=== PATIENT | male | born 1950 | race African-American/Black ===

== ENCOUNTER 2021-03-03 00:41 | Inpatient (IN) ==
[2021-03-03] MEDS ORDERED: GLUCAGON 1 MG VIAL IM PRN (02:40)
[2021-03-03] MEDS ORDERED: ONDANSETRON 4 MG/2 ML VIAL IV PRN (02:40)
[2021-03-03] MEDS ORDERED: DEXTROSE 50% 25 GM/50 ML VIAL IV PRN (02:40)
[2021-03-03] MEDS: SODIUM CHLORIDE 0.9% 1,000 ML IV SCH ×2 (02:45→23:02)
[2021-03-03 03:44] LABS: Basophils % 0.4 % (0.0-0.8); Eosinophils % 0.3 % (0.00-10.9); Hematocrit 41.3 VOL% (42.0-52.0); Hemoglobin 12.5 GM/DL (14.0-18.0); Immature Granulocytes % 0.4 %; Immature Granulocytes Absolute 0.04 #; Lymphocytes # 0.7 10*3/uL (1.4-4.0); Lymphocytes % 6.5 % (21.2-54.2); Mean Corpuscular HGB Conc 30.3 GM/DL (32-36); Mean Corpuscular Volume 75.8 FL (87-102); Mean Platelet Volume 10.6 FL (9.6-12.0); Monocytes % 11.1 % (1.7-12.7); Neutrophils % 81.3 % (38.7-73.9); Platelet Count 337 T/CUMM (130-400); Red Blood Count 5.45 MC/CUMM (3.8-5.5); Red Cell Distribution Width 19.9 % (9.3-17.3); White Blood Count 10.2 T/CUMM (4-12)
[2021-03-03 04:03] LABS: Albumin 3.6 G/DL (3.4-5.0); Bilirubin,Total 0.6 MG/DL (0.2-1.0); Calcium 8.1 MG/DL (8.5-10.1); Osmolality,Calculated 289.8 MOS/KG (273-304); Potassium 4.1 MMOL/L (3.5-5.1)
[2021-03-03] MEDS ORDERED: PROMETHAZINE 25 MG/1 ML VIAL IM PRN (05:39)
[2021-03-03] MEDS ORDERED: PANTOPRAZOLE 40 MG VIAL IV SCH (09:00)
[2021-03-03 12:48] LABS: Hematocrit 39.9 VOL% (42.0-52.0); Hemoglobin 12.7 GM/DL (14.0-18.0)
[2021-03-03] MEDS: PANTOPRAZOLE 40 MG VIAL IV SCH ×2 (14:22→21:02)
[2021-03-03 17:40] LABS: Hematocrit 40.8 VOL% (42.0-52.0); Hemoglobin 12.6 GM/DL (14.0-18.0)
[2021-03-03] MEDS ORDERED: OLANZapine 10 MG VIAL IM PRN (17:51)
[2021-03-04 01:07] LABS: Hematocrit 39.5 VOL% (42.0-52.0); Hemoglobin 12.1 GM/DL (14.0-18.0)
[2021-03-04] MEDS: SODIUM CHLORIDE 0.9% 1,000 ML IV SCH ×2 (01:37→09:01)
[2021-03-04 06:04] LABS: Albumin 3.3 G/DL (3.4-5.0); Bilirubin,Total 0.8 MG/DL (0.2-1.0); Calcium 7.8 MG/DL (8.5-10.1); Osmolality,Calculated 296.8 MOS/KG (273-304); Potassium 4.7 MMOL/L (3.5-5.1); Total Protein 7.9 G/DL (6.4-8.2)
[2021-03-04] MEDS: PANTOPRAZOLE 40 MG VIAL IV SCH ×2 (09:00→21:29)
[2021-03-04 09:45] LABS: Basophils % 0.2 % (0.0-0.8); Eosinophils % 0.1 % (0.00-10.9); Hematocrit 38.5 VOL% (42.0-52.0); Hemoglobin 11.5 GM/DL (14.0-18.0); Immature Granulocytes Absolute 0.12 #; Lymphocytes # 1.4 10*3/uL (1.4-4.0); Lymphocytes % 11.3 % (21.2-54.2); Mean Corpuscular HGB Conc 29.9 GM/DL (32-36); Mean Corpuscular Volume 76.5 FL (87-102); Monocytes % 14.1 % (1.7-12.7); Neutrophils % 73.3 % (38.7-73.9); Red Blood Count 5.03 MC/CUMM (3.8-5.5); Red Cell Distribution Width 19.9 % (9.3-17.3); White Blood Count 12.6 T/CUMM (4-12)
[2021-03-04 09:49] LABS: Platelet Count 148 T/CUMM (130-400)
[2021-03-04 09:56] LABS: Calcium 7.7 MG/DL (8.5-10.1); Osmolality,Calculated 302.7 MOS/KG (273-304); Potassium 4.7 MMOL/L (3.5-5.1)
[2021-03-04 12:41] LABS: ABG HCO3 13.7 MMOL/L (20-26); ABG PH 7.305 (7.35-7.45); ABG PO2 86.9 MM HG (80-95); ABG TCO2 9.9 MMOL/L (23-27)
[2021-03-04] MEDS: SODIUM BICARB INJ 150 MEQ in DEXTROSE 5% 850 ML IV SCH ×2 (14:13→21:30)
[2021-03-04] MEDS ORDERED: LACTATED RINGERS 1,000 ML IV ONE (15:00)
[2021-03-04] MEDS ORDERED: ROCURONIUM 50 MG/5 ML VIAL IV ONE (15:30)
[2021-03-04] MEDS ORDERED: LIDOCAINE 2% 5 ML VIAL ONE (15:30)
[2021-03-04] MEDS ORDERED: propofoL 200 MG/20 ML VIAL IV ONE (15:30)
[2021-03-04] MEDS ORDERED: SUCCINYLCHOLINE 200 MG/10 ML VIAL ONE (15:30)
[2021-03-04] MEDS ORDERED: DESFLURANE 1 UNIT/15 MINUTE INH ONE ×2 (15:30→17:26)
[2021-03-04] MEDS ORDERED: MIDAZOLAM 2 MG/2 ML VIAL ONE (15:31)
[2021-03-04] MEDS ORDERED: fentaNYL 100 MCG/2 ML VIAL ONE (15:31)
[2021-03-04] MEDS ORDERED: PHENYLEPHRINE 1 MG/10 ML SYRINGE IV ONE (17:17)
[2021-03-04] MEDS ORDERED: ONDANSETRON 4 MG/2 ML VIAL ONE (17:17)
[2021-03-04] MEDS ORDERED: DEXAMETHASONE 4 MG/1 ML VIAL ONE (17:17)
[2021-03-04] MEDS ORDERED: GLYCOPYRROLATE 0.4 MG/2 ML VIAL ONE (17:17)
[2021-03-04] MEDS ORDERED: NEOSTIGMINE 10 MG/10 ML VIAL ONE (17:18)
[2021-03-04] MEDS ORDERED: SUGAMMADEX 200 MG/2 ML VIAL IV ONE (17:40)
[2021-03-04] MEDS ORDERED: HYDROmorphone 2 MG/1 ML VIAL ONE (17:55)
[2021-03-04] MEDS ORDERED: HYDROmorphone 2 MG/1 ML VIAL IV PRN (18:16)
[2021-03-04] MEDS ORDERED: ESMOLOL 100 MG/10 ML VIAL IV ONE ×2 (18:29→18:47)
[2021-03-05] MEDS: SODIUM BICARB INJ 150 MEQ in DEXTROSE 5% 850 ML IV SCH ×3 (05:54→20:42)
[2021-03-05 06:27] LABS: Basophils % 0.2 % (0.0-0.8); Hematocrit 36.2 VOL% (42.0-52.0); Hemoglobin 10.9 GM/DL (14.0-18.0); Immature Granulocytes Absolute 0.12 #; Lymphocytes # 0.9 10*3/uL (1.4-4.0); Lymphocytes % 7.3 % (21.2-54.2); Mean Corpuscular HGB Conc 30.1 GM/DL (32-36); Mean Corpuscular Volume 77.8 FL (87-102); Monocytes % 10.8 % (1.7-12.7); NRBC # 0.03 10*3/uL; Neutrophils % 80.7 % (38.7-73.9); Platelet Count 134 T/CUMM (130-400); Red Blood Count 4.65 MC/CUMM (3.8-5.5); Red Cell Distribution Width 20.2 % (9.3-17.3)
[2021-03-05 06:42] LABS: Albumin 3.8 G/DL (3.4-5.0); Bilirubin,Total 0.8 MG/DL (0.2-1.0); Calcium 7.8 MG/DL (8.5-10.1); Osmolality,Calculated 305.7 MOS/KG (273-304); Potassium 4.9 MMOL/L (3.5-5.1)
[2021-03-05 06:53] LABS: Band Neutrophils 11 % (0-10); Hypochromasia 1+; Lymphocytes 9 % (20-55); Segmented Neutrophils 69 % (50-85); Total Cells Counted 100
[2021-03-05 06:54] LABS: Microcytosis 1+; Ovalocytes Slight; Target Cells Slight
[2021-03-05] MEDS: PANTOPRAZOLE 40 MG VIAL IV SCH ×2 (09:04→20:45)
[2021-03-05 17:33] LABS: Barbiturates Screen,Urine Negative (Negative); Benzodiazepines Screen,Urine Positive (Negative); Cannabinoid Screen,Urine Negative (Negative); Opiate Screen,Urine Positive (Negative); Phencyclidine Screen,Urine Negative (Negative)
[2021-03-06] MEDS: SODIUM BICARB INJ 150 MEQ in DEXTROSE 5% 850 ML IV SCH ×2 (05:12→14:49)
[2021-03-06 06:05] LABS: Calcium 7.8 MG/DL (8.5-10.1); Osmolality,Calculated 315.4 MOS/KG (273-304); Potassium 3.6 MMOL/L (3.5-5.1)
[2021-03-06] MEDS: PANTOPRAZOLE 40 MG VIAL IV SCH (11:10)
[2021-03-06] MEDS: cefTRIAXone 2,000 MG in SODIUM CHLORIDE 0.9% 100 ML IV SCH (17:53)
[2021-03-06 20:04] LABS: Basophils % 0.2 % (0.0-0.8); Hematocrit 30.6 VOL% (42.0-52.0); Hemoglobin 9.6 GM/DL (14.0-18.0); Immature Granulocytes % 3.6 %; Immature Granulocytes Absolute 0.54 #; Lymphocytes # 1.7 10*3/uL (1.4-4.0); Lymphocytes % 11.1 % (21.2-54.2); Mean Corpuscular HGB Conc 31.4 GM/DL (32-36); Mean Corpuscular Volume 73.4 FL (87-102); Monocytes % 10.7 % (1.7-12.7); NRBC # 0.42 10*3/uL; Neutrophils % 74.4 % (38.7-73.9); Platelet Count 125 T/CUMM (130-400); Red Blood Count 4.17 MC/CUMM (3.8-5.5); Red Cell Distribution Width 19.4 % (9.3-17.3); White Blood Count 15.2 T/CUMM (4-12)
[2021-03-07] MEDS: PANTOPRAZOLE 40 MG VIAL IV SCH ×3 (00:12→21:17)
[2021-03-07] MEDS: SODIUM BICARB INJ 150 MEQ in DEXTROSE 5% 850 ML IV SCH ×2 (01:22→04:28)
[2021-03-07] MEDS: cefTRIAXone 2,000 MG in SODIUM CHLORIDE 0.9% 100 ML IV SCH ×2 (04:30→16:58)
[2021-03-07 06:09] LABS: Calcium 8.2 MG/DL (8.5-10.1); Osmolality,Calculated 317.3 MOS/KG (273-304); Potassium 3.7 MMOL/L (3.5-5.1)
[2021-03-07 06:28] LABS: Basophils % 0.3 % (0.0-0.8); Eosinophils % 0.1 % (0.00-10.9); Hematocrit 30.6 VOL% (42.0-52.0); Immature Granulocytes % 2.5 %; Immature Granulocytes Absolute 0.37 #; Lymphocytes # 1.6 10*3/uL (1.4-4.0); Mean Corpuscular HGB Conc 32.7 GM/DL (32-36); Mean Corpuscular Volume 75.7 FL (87-102); Monocytes % 15.2 % (1.7-12.7); NRBC # 0.44 10*3/uL; Neutrophils % 70.9 % (38.7-73.9); Platelet Count 114 T/CUMM (130-400); Red Blood Count 4.04 MC/CUMM (3.8-5.5); White Blood Count 14.9 T/CUMM (4-12)
[2021-03-07] MEDS ORDERED: traMADol 50 MG TABLET PO PRN (10:07)
[2021-03-07] MEDS ORDERED: MORPHINE 4 MG/1 ML VIAL IV PRN (10:11)
[2021-03-07] MEDS: MORPHINE 4 MG/1 ML VIAL IV PRN ×2 (11:07→16:36)
[2021-03-07] MEDS: DEXTROSE 5% NACL 0.45% 1,000 ML IV SCH ×2 (12:17→21:17)
[2021-03-08] MEDS: DEXTROSE 5% NACL 0.45% 1,000 ML IV SCH ×4 (04:15→23:30)
[2021-03-08] MEDS: cefTRIAXone 2,000 MG in SODIUM CHLORIDE 0.9% 100 ML IV SCH ×2 (04:20→17:33)
[2021-03-08 04:32] LABS: Calcium 8.2 MG/DL (8.5-10.1); Potassium 3.2 MMOL/L (3.5-5.1)
[2021-03-08] MEDS: PANTOPRAZOLE 40 MG VIAL IV SCH (08:26)
[2021-03-08] MEDS: MORPHINE 4 MG/1 ML VIAL IV PRN ×2 (08:32→21:19)
[2021-03-09] MEDS: cefTRIAXone 2,000 MG in SODIUM CHLORIDE 0.9% 100 ML IV SCH ×2 (05:19→16:54)
[2021-03-09 05:50] LABS: Calcium 7.9 MG/DL (8.5-10.1); Osmolality,Calculated 310.7 MOS/KG (273-304); Potassium 3.4 MMOL/L (3.5-5.1)
[2021-03-09] MEDS: DEXTROSE 5% NACL 0.45% 1,000 ML IV SCH ×2 (07:51→16:54)
[2021-03-10] MEDS: DEXTROSE 5% NACL 0.45% 1,000 ML IV SCH ×2 (01:20→09:36)
[2021-03-10] MEDS: cefTRIAXone 2,000 MG in SODIUM CHLORIDE 0.9% 100 ML IV SCH ×2 (04:58→16:58)
[2021-03-10 05:36] LABS: Calcium 8.2 MG/DL (8.5-10.1); Osmolality,Calculated 305.4 MOS/KG (273-304); Potassium 3.1 MMOL/L (3.5-5.1)
[2021-03-10] MEDS: RIFAXIMIN 550 MG TABLET PO SCH ×2 (09:46→20:57)
[2021-03-10] MEDS: PANTOPRAZOLE 40 MG TABLET PO SCH (09:46)
[2021-03-10] MEDS: THIAMINE 100 MG TABLET PO SCH (09:46)
[2021-03-10] MEDS: BRIMONIDINE/TIMOLOL OPH SOLN 5 ML BOTTLE BOTH EYES SCH ×2 (09:46→21:05)
[2021-03-10] MEDS: MEMANTINE 10 MG TABLET PO SCH ×2 (09:46→20:57)
[2021-03-10] MEDS: DEXTROSE 5% 1,000 ML IV SCH ×2 (11:15→18:37)
[2021-03-10] MEDS: LACTULOSE 20 GM/30 ML UDCUP PO SCH ×2 (16:42→21:05)
[2021-03-10] MEDS: POTASSIUM CHLORIDE 20 MEQ/15 ML UDCUP PER TUBE PRN ×3 (16:58→20:57)
[2021-03-10] MEDS: DONEPEZIL 10 MG TABLET PO SCH (20:56)
[2021-03-10] MEDS: GABAPENTIN 100 MG CAPSULE PO SCH (20:57)
[2021-03-10] MEDS: DIVALPROEX 500 MG TABLET PO SCH (20:57)
[2021-03-11] MEDS: DEXTROSE 5% 1,000 ML IV SCH ×2 (01:45→14:17)
[2021-03-11] MEDS: cefTRIAXone 2,000 MG in SODIUM CHLORIDE 0.9% 100 ML IV SCH (04:35)
[2021-03-11 05:07] LABS: Calcium 8.1 MG/DL (8.5-10.1); Osmolality,Calculated 298.6 MOS/KG (273-304); Potassium 3.4 MMOL/L (3.5-5.1)
[2021-03-11] MEDS: MULTIVITAMIN (CENTRUM) TABLET PO SCH (10:55)
[2021-03-11] MEDS: BRIMONIDINE/TIMOLOL OPH SOLN 5 ML BOTTLE BOTH EYES SCH ×2 (10:55→22:01)
[2021-03-11] MEDS: PANTOPRAZOLE 40 MG TABLET PO SCH (10:56)
[2021-03-11] MEDS: THIAMINE 100 MG TABLET PO SCH (10:56)
[2021-03-11] MEDS: DIVALPROEX ER 250 MG TABLET PO SCH (10:56)
[2021-03-11] MEDS: RIFAXIMIN 550 MG TABLET PO SCH ×2 (10:56→21:59)
[2021-03-11] MEDS: FOLIC ACID 1 MG TABLET PO SCH (10:58)
[2021-03-11] MEDS: MEMANTINE 10 MG TABLET PO SCH ×2 (10:58→22:00)
[2021-03-11] MEDS: LACTULOSE 20 GM/30 ML UDCUP PO SCH ×3 (10:58→22:00)
[2021-03-11] MEDS: CIPROFLOXACIN 0.3% OPH SOLN 2.5 ML BOTTLE BOTH EYES SCH ×2 (17:15→22:01)
[2021-03-11] MEDS: GABAPENTIN 100 MG CAPSULE PO SCH (21:59)
[2021-03-11] MEDS: DONEPEZIL 10 MG TABLET PO SCH (22:00)
[2021-03-11] MEDS: MORPHINE 4 MG/1 ML VIAL IV PRN (22:00)
[2021-03-11] MEDS: DIVALPROEX 500 MG TABLET PO SCH (22:13)
[2021-03-12] MEDS: DEXTROSE 5% 1,000 ML IV SCH (03:50)
[2021-03-12] MEDS: CIPROFLOXACIN 0.3% OPH SOLN 2.5 ML BOTTLE BOTH EYES SCH ×6 (04:29→21:55)
[2021-03-12 05:16] LABS: Basophils % 0.3 % (0.0-0.8); Eosinophils # 0.2 10*3/uL (0.0-0.87); Eosinophils % 1.4 % (0.00-10.9); Hematocrit 33.1 VOL% (42.0-52.0); Hemoglobin 9.8 GM/DL (14.0-18.0); Immature Granulocytes % 0.9 %; Lymphocytes # 1.7 10*3/uL (1.4-4.0); Lymphocytes % 15.2 % (21.2-54.2); Mean Corpuscular HGB Conc 29.6 GM/DL (32-36); Mean Corpuscular Volume 83.2 FL (87-102); Monocytes % 7.4 % (1.7-12.7); NRBC # 0.02 10*3/uL; Neutrophils % 74.8 % (38.7-73.9); Platelet Count 223 T/CUMM (130-400); Red Blood Count 3.98 MC/CUMM (3.8-5.5); Red Cell Distribution Width 21.4 % (9.3-17.3); White Blood Count 10.9 T/CUMM (4-12)
[2021-03-12 05:31] LABS: Calcium 8.4 MG/DL (8.5-10.1); Osmolality,Calculated 295.7 MOS/KG (273-304); Potassium 3.6 MMOL/L (3.5-5.1)
[2021-03-12] MEDS: FOLIC ACID 1 MG TABLET PO SCH (10:10)
[2021-03-12] MEDS: MEMANTINE 10 MG TABLET PO SCH ×2 (10:10→21:51)
[2021-03-12] MEDS: PANTOPRAZOLE 40 MG TABLET PO SCH (10:10)
[2021-03-12] MEDS: THIAMINE 100 MG TABLET PO SCH (10:10)
[2021-03-12] MEDS: MULTIVITAMIN (CENTRUM) TABLET PO SCH (10:10)
[2021-03-12] MEDS: DIVALPROEX ER 250 MG TABLET PO SCH (10:10)
[2021-03-12] MEDS: LACTULOSE 20 GM/30 ML UDCUP PO SCH ×3 (10:10→21:51)
[2021-03-12] MEDS: RIFAXIMIN 550 MG TABLET PO SCH ×2 (10:10→21:51)
[2021-03-12] MEDS: BRIMONIDINE/TIMOLOL OPH SOLN 5 ML BOTTLE BOTH EYES SCH ×2 (10:11→21:55)
[2021-03-12] MEDS: DONEPEZIL 10 MG TABLET PO SCH (21:51)
[2021-03-12] MEDS: GABAPENTIN 100 MG CAPSULE PO SCH (21:51)
[2021-03-12] MEDS: DIVALPROEX 500 MG TABLET PO SCH (21:51)
[2021-03-12] MEDS: levETIRAcetam 500 MG TABLET PO SCH (21:51)
[2021-03-12] MEDS: MORPHINE 4 MG/1 ML VIAL IV PRN (21:58)
[2021-03-13] MEDS: CIPROFLOXACIN 0.3% OPH SOLN 2.5 ML BOTTLE BOTH EYES SCH ×6 (02:37→22:49)
[2021-03-13 04:36] LABS: Basophils % 0.4 % (0.0-0.8); Eosinophils # 0.2 10*3/uL (0.0-0.87); Eosinophils % 1.8 % (0.00-10.9); Hematocrit 32.1 VOL% (42.0-52.0); Immature Granulocytes Absolute 0.11 #; Lymphocytes # 1.9 10*3/uL (1.4-4.0); Lymphocytes % 17.2 % (21.2-54.2); Mean Corpuscular HGB Conc 31.2 GM/DL (32-36); Mean Corpuscular Volume 82.7 FL (87-102); Mean Platelet Volume 12.3 FL (9.6-12.0); Monocytes % 7.1 % (1.7-12.7); Neutrophils % 72.5 % (38.7-73.9); Platelet Count 247 T/CUMM (130-400); Red Blood Count 3.88 MC/CUMM (3.8-5.5); Red Cell Distribution Width 21.9 % (9.3-17.3); White Blood Count 10.9 T/CUMM (4-12)
[2021-03-13 05:13] LABS: Calcium 8.1 MG/DL (8.5-10.1); Osmolality,Calculated 296.6 MOS/KG (273-304); Potassium 4.2 MMOL/L (3.5-5.1)
[2021-03-13] MEDS: LACTULOSE 20 GM/30 ML UDCUP PO SCH ×3 (11:11→22:49)
[2021-03-13] MEDS: PANTOPRAZOLE 40 MG TABLET PO SCH (11:11)
[2021-03-13] MEDS: THIAMINE 100 MG TABLET PO SCH (11:11)
[2021-03-13] MEDS: RIFAXIMIN 550 MG TABLET PO SCH ×2 (11:11→22:48)
[2021-03-13] MEDS: FOLIC ACID 1 MG TABLET PO SCH (11:11)
[2021-03-13] MEDS: DIVALPROEX ER 250 MG TABLET PO SCH (11:11)
[2021-03-13] MEDS: levETIRAcetam 500 MG TABLET PO SCH ×2 (11:11→22:48)
[2021-03-13] MEDS: MULTIVITAMIN (CENTRUM) TABLET PO SCH (11:11)
[2021-03-13] MEDS: BRIMONIDINE/TIMOLOL OPH SOLN 5 ML BOTTLE BOTH EYES SCH ×2 (11:12→22:49)
[2021-03-13] MEDS: MEMANTINE 10 MG TABLET PO SCH ×2 (11:12→22:49)
[2021-03-13] MEDS: DIVALPROEX 500 MG TABLET PO SCH (22:48)
[2021-03-13] MEDS: GABAPENTIN 100 MG CAPSULE PO SCH (22:48)
[2021-03-13] MEDS: DONEPEZIL 10 MG TABLET PO SCH (22:49)
[2021-03-14] MEDS: CIPROFLOXACIN 0.3% OPH SOLN 2.5 ML BOTTLE BOTH EYES SCH ×3 (01:39→10:13)
[2021-03-14 04:50] LABS: Basophils % 0.3 % (0.0-0.8); Eosinophils # 0.1 10*3/uL (0.0-0.87); Hematocrit 29.3 VOL% (42.0-52.0); Hemoglobin 8.8 GM/DL (14.0-18.0); Immature Granulocytes % 0.7 %; Immature Granulocytes Absolute 0.07 #; Lymphocytes # 1.6 10*3/uL (1.4-4.0); Lymphocytes % 16.8 % (21.2-54.2); Mean Platelet Volume 11.4 FL (9.6-12.0); Monocytes % 6.5 % (1.7-12.7); Neutrophils % 74.7 % (38.7-73.9); Platelet Count 251 T/CUMM (130-400); Red Blood Count 3.53 MC/CUMM (3.8-5.5); Red Cell Distribution Width 21.2 % (9.3-17.3); White Blood Count 9.5 T/CUMM (4-12)
[2021-03-14 05:14] LABS: Calcium 8.6 MG/DL (8.5-10.1); Osmolality,Calculated 298.4 MOS/KG (273-304); Potassium 3.6 MMOL/L (3.5-5.1)
[2021-03-14] MEDS: DIVALPROEX ER 250 MG TABLET PO SCH (08:08)
[2021-03-14] MEDS: MULTIVITAMIN (CENTRUM) TABLET PO SCH (08:08)
[2021-03-14] MEDS: THIAMINE 100 MG TABLET PO SCH (08:08)
[2021-03-14] MEDS: FOLIC ACID 1 MG TABLET PO SCH (08:09)
[2021-03-14] MEDS: MEMANTINE 10 MG TABLET PO SCH (08:09)
[2021-03-14] MEDS: levETIRAcetam 500 MG TABLET PO SCH (08:09)
[2021-03-14] MEDS: LACTULOSE 20 GM/30 ML UDCUP PO SCH (08:09)
[2021-03-14] MEDS: RIFAXIMIN 550 MG TABLET PO SCH (08:09)
[2021-03-14] MEDS: PANTOPRAZOLE 40 MG TABLET PO SCH (08:09)
[2021-03-14 08:30] VITALS: BP 113/71
[2021-03-14] MEDS: BRIMONIDINE/TIMOLOL OPH SOLN 5 ML BOTTLE BOTH EYES SCH (10:13)
== END 2021-03-14 14:01 | DRG 356 ==
LOC: N.3E → OBSVTOIN 02:03 → SUATTDRO 02:03 → N.TELEN 03-04 20:08
PROVIDERS: ADMIT Internal Medicine; ATTEND Internal Medicine

== ENCOUNTER 2021-03-21 10:16 | Inpatient (IN) ==
[2021-03-21 12:32] LABS: Albumin 3.4 G/DL (3.4-5.0); Bilirubin,Total 0.6 MG/DL (0.20-1.00); Calcium 9.4 MG/DL (8.5-10.1); Osmolality,Calculated 303.9 MOS/KG (273-304); Potassium 5.7 MMOL/L (3.5-5.1); Total Protein 8.8 G/DL (6.4-8.2)
[2021-03-21] MEDS ORDERED: LACTATED RINGERS 1,000 ML IV ONE (13:20)
[2021-03-21] MEDS ORDERED: LEVOFLOXACIN INJ 500 MG/100 ML PREMIX IV STA (13:28)
[2021-03-21 14:46] LABS: Basophils % 0.1 % (0.0-0.8); Eosinophils % 0.2 % (0.00-10.9); Immature Granulocytes % 0.4 %; Immature Granulocytes Absolute 0.04 #; Lymphocytes # 0.7 10*3/uL (1.4-4.0); Mean Corpuscular HGB Conc 27.7 GM/DL (32-36); Mean Platelet Volume 11.5 FL (9.6-12.0); Monocytes % 2.7 % (1.7-12.7); Neutrophils % 89.6 % (38.7-73.9); Platelet Count 305 T/CUMM (130-400); Red Blood Count 4.59 MC/CUMM (3.8-5.5); Red Cell Distribution Width 23.5 % (9.3-17.3); White Blood Count 9.4 T/CUMM (4-12)
[2021-03-21 14:48] LABS: Hemoglobin 10.8 GM/DL (14.0-18.0)
[2021-03-21 14:52] LABS: INR 1.2; PT Patient Result 13.1 SECS (10.5-12.0)
[2021-03-21 14:58] LABS: Band Neutrophils 6 % (0-10); Eosinophils 1 % (0-10); Lymphocytes 9 % (20-55); Segmented Neutrophils 80 % (50-85); Total Cells Counted 100
[2021-03-21 15:03] LABS: Acanthocytes Few; Burr Cells Few; Hypochromasia Slight; Microcytosis Slight; Ovalocytes Few; Platelet Estimate Increased; Polychromasia Slight
[2021-03-21 16:21] LABS: Bilirubin,Urine Negative (Negative); Blood, Urine Negative (Negative); Glucose,Urine (UA) Negative (Negative); Hyaline Casts,Urine 17 /LPF (0-3); Ketones,Urine 5 mg/dL (Negative); Mucus,Urine Few /LPF (Occasional); Nitrite,Urine Negative (Negative); Protein,Urine 100 MG/DL; RBC,Urine 1 /HPF (0-4); Squamous Epithelial Cell,Urine Occasional /HPF (0-10); Urine Appearance Slightly Hazy (Clear); Urine Color Amber (Yellow); Urine Specific Gravity 1.031 (1.001-1.035); Urine Urobilinogen < 2.0 EU/DL (0.2-1.0)
[2021-03-21 16:27] LABS: Barbiturates Screen,Urine Negative (Negative); Benzodiazepines Screen,Urine Negative (Negative); Cannabinoid Screen,Urine Negative (Negative); Opiate Screen,Urine Negative (Negative); Phencyclidine Screen,Urine Negative (Negative)
[2021-03-21] MEDS ORDERED: ONDANSETRON 4 MG/2 ML VIAL IV PRN (18:10)
[2021-03-21] MEDS ORDERED: DEXTROSE 50% 25 GM/50 ML VIAL IV PRN (18:10)
[2021-03-21] MEDS ORDERED: hydrALAZINE 20 MG/1 ML VIAL IV PRN (18:10)
[2021-03-21] MEDS ORDERED: GLUCAGON 1 MG VIAL IM PRN (18:10)
[2021-03-21] MEDS ORDERED: LACTULOSE 20 GM/30 ML UDCUP PO STA (18:13)
[2021-03-21] MEDS ORDERED: PIPERACILLIN/TAZOBACTAM 2.25 MG in SODIUM CHLORIDE 0.9% 100 ML IV SCH (18:30)
[2021-03-21] MEDS ORDERED: ACETAMINOPHEN 325 MG TABLET PO PRN (18:31)
[2021-03-21 18:58] LABS: % Iron Saturation 10.3 % (18-50)
[2021-03-21 19:04] LABS: Folate > 24.00 NG/ML (5.38-24.0); Vitamin B12 1191 PG/ML (211-911)
[2021-03-21] MEDS ORDERED: ALBUTEROL 2.5 MG/3 ML NEB RESP TX PRN (19:04)
[2021-03-21] MEDS: DEXTROSE 5% 1,000 ML IV SCH (20:05)
[2021-03-21] MEDS: PIPERACILLIN/TAZOBACTAM 3,375 MG in SODIUM CHLORIDE 0.9% 100 ML IV SCH (21:54)
[2021-03-21] MEDS: LACTULOSE 20 GM/30 ML UDCUP PO SCH ×2 (22:18→22:29)
[2021-03-21] MEDS: ENOXAPARIN 30 MG/0.3 ML SYRINGE SUBCUT SCH ×2 (22:18→22:35)
[2021-03-21] MEDS: RIFAXIMIN 550 MG TABLET PO SCH (22:19)
[2021-03-21] MEDS: MEMANTINE 10 MG TABLET PO SCH (22:19)
[2021-03-21] MEDS: BRIMONIDINE/TIMOLOL OPH SOLN 5 ML BOTTLE BOTH EYES SCH (22:19)
[2021-03-21] MEDS: DONEPEZIL 10 MG TABLET PO SCH (22:19)
[2021-03-21] MEDS: levETIRAcetam 500 MG TABLET PO SCH (22:19)
[2021-03-21] MEDS: GABAPENTIN 100 MG CAPSULE PO SCH (22:19)
[2021-03-21] MEDS: DIVALPROEX 500 MG TABLET PO SCH (22:19)
[2021-03-22] MEDS: PIPERACILLIN/TAZOBACTAM 3,375 MG in SODIUM CHLORIDE 0.9% 100 ML IV SCH (05:38)
[2021-03-22 06:56] LABS: Basophils % 0.1 % (0.0-0.8); Eosinophils # 0.1 10*3/uL (0.0-0.87); Eosinophils % 0.5 % (0.00-10.9); Hematocrit 33.6 VOL% (42.0-52.0); Immature Granulocytes % 0.2 %; Immature Granulocytes Absolute 0.02 #; Lymphocytes # 1.3 10*3/uL (1.4-4.0); Mean Corpuscular HGB Conc 28.3 GM/DL (32-36); Mean Corpuscular Volume 84.2 FL (87-102); Mean Platelet Volume 11.5 FL (9.6-12.0); Neutrophils % 80.2 % (38.7-73.9); Platelet Count 249 T/CUMM (130-400); Red Blood Count 3.99 MC/CUMM (3.8-5.5); Red Cell Distribution Width 23.1 % (9.3-17.3); White Blood Count 9.9 T/CUMM (4-12)
[2021-03-22 06:59] LABS: Hemoglobin 9.5 GM/DL (14.0-18.0)
[2021-03-22 07:02] LABS: Albumin 2.8 G/DL (3.4-5.0); Bilirubin,Total 0.9 MG/DL (0.20-1.00); Calcium 8.8 MG/DL (8.5-10.1); Osmolality,Calculated 311.6 MOS/KG (273-304); Potassium 4.5 MMOL/L (3.5-5.1); Risk Ratio 3.37; Total Protein 7.6 G/DL (6.4-8.2); VLDL Cholesterol 23.2 MG/DL
[2021-03-22 07:24] LABS: Eosinophils 1 % (0-10); Lymphocytes 12 % (20-55); Segmented Neutrophils 82 % (50-85); Total Cells Counted 100
[2021-03-22 07:25] LABS: Hypochromasia 3+; Ovalocytes Few; Platelet Estimate Normal; Schistocytes Slight
[2021-03-22] MEDS: MULTIVITAMIN (CENTRUM) TABLET PO SCH (08:34)
[2021-03-22] MEDS: LACTULOSE 20 GM/30 ML UDCUP PO SCH ×3 (08:35→21:04)
[2021-03-22] MEDS: FOLIC ACID 1 MG TABLET PO SCH (08:36)
[2021-03-22] MEDS: PANTOPRAZOLE 40 MG TABLET PO SCH (08:36)
[2021-03-22] MEDS: THIAMINE 100 MG TABLET PO SCH (08:36)
[2021-03-22] MEDS ORDERED: PANTOPRAZOLE 40 MG TABLET PO SCH (09:00)
[2021-03-22] MEDS: MEROPENEM 500 MG in SODIUM CHLORIDE 0.9% 100 ML IV SCH ×3 (10:08→22:50)
[2021-03-22] MEDS: MEMANTINE 10 MG TABLET PO SCH ×2 (10:40→21:50)
[2021-03-22] MEDS: DIVALPROEX 250 MG TABLET PO SCH (10:40)
[2021-03-22] MEDS: levETIRAcetam 500 MG TABLET PO SCH ×2 (10:40→21:05)
[2021-03-22] MEDS: RIFAXIMIN 550 MG TABLET PO SCH ×2 (10:40→21:51)
[2021-03-22] MEDS: BRIMONIDINE/TIMOLOL OPH SOLN 5 ML BOTTLE BOTH EYES SCH ×2 (10:40→21:04)
[2021-03-22] MEDS: OLANZapine 5 MG TABLET PO SCH (10:41)
[2021-03-22] MEDS: DEXTROSE 5% 1,000 ML IV SCH (11:29)
[2021-03-22] MEDS: DIVALPROEX 500 MG TABLET PO SCH (21:04)
[2021-03-22] MEDS: DONEPEZIL 10 MG TABLET PO SCH (21:50)
[2021-03-22] MEDS: FERROUS SULFATE 300 MG/5 ML UDCUP PO SCH (21:50)
[2021-03-22] MEDS: GABAPENTIN 100 MG CAPSULE PO SCH (21:51)
[2021-03-22] MEDS: ENOXAPARIN 30 MG/0.3 ML SYRINGE SUBCUT SCH (21:59)
[2021-03-23] MEDS: MEROPENEM 500 MG in SODIUM CHLORIDE 0.9% 100 ML IV SCH ×4 (03:20→21:23)
[2021-03-23] MEDS: DEXTROSE 5% 1,000 ML IV SCH ×2 (04:31→11:54)
[2021-03-23 05:39] LABS: Basophils % 0.4 % (0.0-0.8); Eosinophils # 0.1 10*3/uL (0.0-0.87); Eosinophils % 1.5 % (0.00-10.9); Hematocrit 31.1 VOL% (42.0-52.0); Hemoglobin 9.1 GM/DL (14.0-18.0); Immature Granulocytes % 0.5 %; Immature Granulocytes Absolute 0.03 #; Lymphocytes # 0.8 10*3/uL (1.4-4.0); Lymphocytes % 15.2 % (21.2-54.2); Mean Corpuscular HGB Conc 29.3 GM/DL (32-36); Mean Platelet Volume 10.9 FL (9.6-12.0); Monocytes % 10.2 % (1.7-12.7); Neutrophils % 72.2 % (38.7-73.9); Platelet Count 242 T/CUMM (130-400); Red Blood Count 3.66 MC/CUMM (3.8-5.5); Red Cell Distribution Width 23.1 % (9.3-17.3); White Blood Count 5.5 T/CUMM (4-12)
[2021-03-23 05:57] LABS: Calcium 8.2 MG/DL (8.5-10.1); Osmolality,Calculated 304.9 MOS/KG (273-304); Potassium 3.9 MMOL/L (3.5-5.1)
[2021-03-23 06:24] LABS: Hypochromasia 1+
[2021-03-23 06:25] LABS: Microcytosis 1+; Ovalocytes Few; Platelet Estimate Normal
[2021-03-23] MEDS: levETIRAcetam 500 MG TABLET PO SCH ×2 (10:49→20:08)
[2021-03-23] MEDS: FERROUS SULFATE 300 MG/5 ML UDCUP PO SCH ×2 (10:49→20:08)
[2021-03-23] MEDS: MULTIVITAMIN (CENTRUM) TABLET PO SCH (10:49)
[2021-03-23] MEDS: OLANZapine 5 MG TABLET PO SCH (10:49)
[2021-03-23] MEDS: THIAMINE 100 MG TABLET PO SCH (10:49)
[2021-03-23] MEDS: PANTOPRAZOLE 40 MG TABLET PO SCH (10:49)
[2021-03-23] MEDS: LACTULOSE 20 GM/30 ML UDCUP PO SCH ×3 (10:49→20:07)
[2021-03-23] MEDS: FOLIC ACID 1 MG TABLET PO SCH (10:50)
[2021-03-23] MEDS: MEMANTINE 10 MG TABLET PO SCH ×2 (10:50→20:08)
[2021-03-23] MEDS: RIFAXIMIN 550 MG TABLET PO SCH ×2 (10:50→20:08)
[2021-03-23] MEDS: DIVALPROEX 250 MG TABLET PO SCH (10:50)
[2021-03-23] MEDS: BRIMONIDINE/TIMOLOL OPH SOLN 5 ML BOTTLE BOTH EYES SCH ×2 (11:48→21:22)
[2021-03-23] MEDS: DONEPEZIL 10 MG TABLET PO SCH (20:07)
[2021-03-23] MEDS: DIVALPROEX 500 MG TABLET PO SCH (20:08)
[2021-03-23] MEDS: GABAPENTIN 100 MG CAPSULE PO SCH (20:08)
[2021-03-23] MEDS: ENOXAPARIN 30 MG/0.3 ML SYRINGE SUBCUT SCH (21:22)
[2021-03-24] MEDS: DEXTROSE 5% 1,000 ML IV SCH (01:54)
[2021-03-24] MEDS: MEROPENEM 500 MG in SODIUM CHLORIDE 0.9% 100 ML IV SCH ×4 (04:18→21:33)
[2021-03-24 06:35] LABS: Basophils % 0.4 % (0.0-0.8); Eosinophils # 0.1 10*3/uL (0.0-0.87); Eosinophils % 1.5 % (0.00-10.9); Hematocrit 33.3 VOL% (42.0-52.0); Hemoglobin 10.1 GM/DL (14.0-18.0); Immature Granulocytes % 0.6 %; Immature Granulocytes Absolute 0.03 #; Lymphocytes # 1.1 10*3/uL (1.4-4.0); Lymphocytes % 23.6 % (21.2-54.2); Mean Corpuscular HGB Conc 30.3 GM/DL (32-36); Mean Corpuscular Volume 84.7 FL (87-102); Mean Platelet Volume 11.4 FL (9.6-12.0); Monocytes % 11.7 % (1.7-12.7); Neutrophils % 62.2 % (38.7-73.9); Platelet Count 303 T/CUMM (130-400); Red Blood Count 3.93 MC/CUMM (3.8-5.5); Red Cell Distribution Width 22.9 % (9.3-17.3); White Blood Count 4.7 T/CUMM (4-12)
[2021-03-24 07:03] LABS: Calcium 8.2 MG/DL (8.5-10.1); Osmolality,Calculated 287.8 MOS/KG (273-304); Potassium 4.1 MMOL/L (3.5-5.1)
[2021-03-24 07:08] LABS: Eosinophils 2 % (0-10); Lymphocytes 18 % (20-55); Platelet Estimate Normal; Segmented Neutrophils 71 % (50-85); Total Cells Counted 100
[2021-03-24] MEDS: FERROUS SULFATE 300 MG/5 ML UDCUP PO SCH ×2 (08:12→20:47)
[2021-03-24] MEDS: LACTULOSE 20 GM/30 ML UDCUP PO SCH ×3 (08:12→20:47)
[2021-03-24] MEDS: DIVALPROEX 250 MG TABLET PO SCH (08:12)
[2021-03-24] MEDS: FOLIC ACID 1 MG TABLET PO SCH (08:12)
[2021-03-24] MEDS: MULTIVITAMIN (CENTRUM) TABLET PO SCH (08:12)
[2021-03-24] MEDS: PANTOPRAZOLE 40 MG TABLET PO SCH (08:13)
[2021-03-24] MEDS: MEMANTINE 10 MG TABLET PO SCH ×2 (08:13→20:47)
[2021-03-24] MEDS: RIFAXIMIN 550 MG TABLET PO SCH ×2 (08:13→20:47)
[2021-03-24] MEDS: OLANZapine 5 MG TABLET PO SCH (08:13)
[2021-03-24] MEDS: levETIRAcetam 500 MG TABLET PO SCH ×2 (08:13→20:47)
[2021-03-24] MEDS: THIAMINE 100 MG TABLET PO SCH (08:13)
[2021-03-24] MEDS: SODIUM BICARB INJ 100 MEQ in DEXTROSE 5% 1,000 ML IV SCH (10:02)
[2021-03-24] MEDS: BRIMONIDINE/TIMOLOL OPH SOLN 5 ML BOTTLE BOTH EYES SCH ×2 (10:02→21:33)
[2021-03-24] MEDS: DONEPEZIL 10 MG TABLET PO SCH (20:47)
[2021-03-24] MEDS: GABAPENTIN 100 MG CAPSULE PO SCH (20:47)
[2021-03-24] MEDS: DIVALPROEX 500 MG TABLET PO SCH (20:47)
[2021-03-24] MEDS: ENOXAPARIN 30 MG/0.3 ML SYRINGE SUBCUT SCH (21:32)
[2021-03-25] MEDS: SODIUM BICARB INJ 100 MEQ in DEXTROSE 5% 1,000 ML IV SCH ×2 (00:05→17:22)
[2021-03-25] MEDS: MEROPENEM 500 MG in SODIUM CHLORIDE 0.9% 100 ML IV SCH ×4 (03:12→22:41)
[2021-03-25 09:04] LABS: Basophils % 0.6 % (0.0-0.8); Eosinophils # 0.1 10*3/uL (0.0-0.87); Eosinophils % 2.2 % (0.00-10.9); Hematocrit 31.1 VOL% (42.0-52.0); Hemoglobin 9.5 GM/DL (14.0-18.0); Immature Granulocytes % 0.8 %; Immature Granulocytes Absolute 0.03 #; Lymphocytes # 1.2 10*3/uL (1.4-4.0); Lymphocytes % 32.7 % (21.2-54.2); Mean Corpuscular HGB Conc 30.5 GM/DL (32-36); Mean Corpuscular Volume 83.2 FL (87-102); Mean Platelet Volume 11.9 FL (9.6-12.0); Monocytes % 14.4 % (1.7-12.7); Neutrophils % 49.3 % (38.7-73.9); Platelet Count 308 T/CUMM (130-400); Red Blood Count 3.74 MC/CUMM (3.8-5.5); Red Cell Distribution Width 22.5 % (9.3-17.3); White Blood Count 3.6 T/CUMM (4-12)
[2021-03-25 09:21] LABS: Calcium 7.9 MG/DL (8.5-10.1); Osmolality,Calculated 282.1 MOS/KG (273-304); Potassium 3.6 MMOL/L (3.5-5.1)
[2021-03-25 10:48] LABS: Hypochromasia 1+; Lymphocytes 30 % (20-55); Microcytosis 1+; Ovalocytes Few; Segmented Neutrophils 54 % (50-85); Total Cells Counted 100
[2021-03-25 10:49] LABS: Platelet Estimate Normal
[2021-03-25] MEDS: DIVALPROEX 250 MG TABLET PO SCH (11:08)
[2021-03-25] MEDS: FOLIC ACID 1 MG TABLET PO SCH (11:08)
[2021-03-25] MEDS: MULTIVITAMIN (CENTRUM) TABLET PO SCH (11:08)
[2021-03-25] MEDS: LACTULOSE 20 GM/30 ML UDCUP PO SCH ×3 (11:08→23:28)
[2021-03-25] MEDS: levETIRAcetam 500 MG TABLET PO SCH ×2 (11:08→23:28)
[2021-03-25] MEDS: FERROUS SULFATE 300 MG/5 ML UDCUP PO SCH ×2 (11:08→23:28)
[2021-03-25] MEDS: BRIMONIDINE/TIMOLOL OPH SOLN 5 ML BOTTLE BOTH EYES SCH (11:09)
[2021-03-25] MEDS: OLANZapine 5 MG TABLET PO SCH (11:09)
[2021-03-25] MEDS: MEMANTINE 10 MG TABLET PO SCH ×2 (11:09→23:28)
[2021-03-25] MEDS: THIAMINE 100 MG TABLET PO SCH (11:09)
[2021-03-25] MEDS: PANTOPRAZOLE 40 MG TABLET PO SCH (11:09)
[2021-03-25] MEDS: RIFAXIMIN 550 MG TABLET PO SCH ×2 (11:09→23:29)
[2021-03-25] MEDS: GABAPENTIN 100 MG CAPSULE PO SCH (23:28)
[2021-03-25] MEDS: DIVALPROEX 500 MG TABLET PO SCH (23:28)
[2021-03-25] MEDS: DONEPEZIL 10 MG TABLET PO SCH (23:28)
[2021-03-26] MEDS: MEROPENEM 500 MG in SODIUM CHLORIDE 0.9% 100 ML IV SCH ×3 (04:06→15:04)
[2021-03-26] MEDS: BRIMONIDINE/TIMOLOL OPH SOLN 5 ML BOTTLE BOTH EYES SCH ×3 (05:55→20:45)
[2021-03-26 06:05] LABS: Basophils % 0.3 % (0.0-0.8); Eosinophils # 0.1 10*3/uL (0.0-0.87); Hematocrit 30.1 VOL% (42.0-52.0); Hemoglobin 9.4 GM/DL (14.0-18.0); Immature Granulocytes % 0.9 %; Immature Granulocytes Absolute 0.03 #; Lymphocytes # 1.3 10*3/uL (1.4-4.0); Lymphocytes % 38.1 % (21.2-54.2); Mean Corpuscular HGB Conc 31.2 GM/DL (32-36); Mean Corpuscular Volume 80.7 FL (87-102); Mean Platelet Volume 10.8 FL (9.6-12.0); Neutrophils % 41.7 % (38.7-73.9); Platelet Count 325 T/CUMM (130-400); Red Blood Count 3.73 MC/CUMM (3.8-5.5); Red Cell Distribution Width 22.3 % (9.3-17.3); White Blood Count 3.5 T/CUMM (4-12)
[2021-03-26 06:16] LABS: INR 1.2; PT Patient Result 13.3 SECS (10.5-12.0)
[2021-03-26 06:32] LABS: Band Neutrophils 1 % (0-10); Eosinophils 2 % (0-10); Lymphocytes 37 % (20-55); Platelet Estimate Normal; Segmented Neutrophils 50 % (50-85); Total Cells Counted 100
[2021-03-26 06:33] LABS: Hypochromasia Slight
[2021-03-26 06:40] LABS: Calcium 7.9 MG/DL (8.5-10.1); Potassium 3.3 MMOL/L (3.5-5.1)
[2021-03-26] MEDS ORDERED: LACTATED RINGERS 1,000 ML IV SCH (08:00)
[2021-03-26] MEDS: DEXTROSE 5% KCL 20 MEQ 20 MEQ/1,000 ML BAG IV SCH (09:02)
[2021-03-26] MEDS: DIVALPROEX 250 MG TABLET PO SCH (09:02)
[2021-03-26] MEDS: LACTULOSE 20 GM/30 ML UDCUP PO SCH ×3 (09:02→22:31)
[2021-03-26] MEDS: MULTIVITAMIN (CENTRUM) TABLET PO SCH (09:02)
[2021-03-26] MEDS: FERROUS SULFATE 300 MG/5 ML UDCUP PO SCH ×2 (09:03→22:31)
[2021-03-26] MEDS: FOLIC ACID 1 MG TABLET PO SCH (09:03)
[2021-03-26] MEDS: MEMANTINE 10 MG TABLET PO SCH ×2 (09:03→22:30)
[2021-03-26] MEDS: levETIRAcetam 500 MG TABLET PO SCH ×2 (09:03→22:30)
[2021-03-26] MEDS: RIFAXIMIN 550 MG TABLET PO SCH ×2 (09:03→22:30)
[2021-03-26] MEDS: OLANZapine 5 MG TABLET PO SCH (09:03)
[2021-03-26] MEDS: PANTOPRAZOLE 40 MG TABLET PO SCH (09:03)
[2021-03-26] MEDS: THIAMINE 100 MG TABLET PO SCH (09:03)
[2021-03-26] MEDS: SODIUM BICARB INJ 100 MEQ in DEXTROSE 5% 1,000 ML IV SCH (09:04)
[2021-03-26] MEDS ORDERED: propofoL 200 MG/20 ML VIAL IV ONE (13:25)
[2021-03-26] MEDS ORDERED: LIDOCAINE 2% 5 ML VIAL ONE (13:25)
[2021-03-26] MEDS ORDERED: ETOMIDATE 20 MG/10 ML VIAL IV ONE (13:54)
[2021-03-26] MEDS: MORPHINE 2 MG/1 ML SYRINGE IV PRN ×2 (15:05→20:45)
[2021-03-26] MEDS: DONEPEZIL 10 MG TABLET PO SCH (22:30)
[2021-03-26] MEDS: DIVALPROEX 500 MG TABLET PO SCH (22:30)
[2021-03-26] MEDS: GABAPENTIN 100 MG CAPSULE PO SCH (22:31)
[2021-03-27] MEDS: DEXTROSE 5% KCL 20 MEQ 20 MEQ/1,000 ML BAG IV SCH ×3 (00:34→14:08)
[2021-03-27] MEDS: MEROPENEM 500 MG in SODIUM CHLORIDE 0.9% 100 ML IV SCH ×6 (00:36→23:05)
[2021-03-27] MEDS: MORPHINE 2 MG/1 ML SYRINGE IV PRN (04:31)
[2021-03-27 07:24] LABS: Calcium 7.9 MG/DL (8.5-10.1); Osmolality,Calculated 276.4 MOS/KG (273-304); Potassium 3.6 MMOL/L (3.5-5.1)
[2021-03-27 08:03] LABS: Basophils % 0.5 % (0.0-0.8); Eosinophils # 0.1 10*3/uL (0.0-0.87); Eosinophils % 2.3 % (0.00-10.9); Hematocrit 32.7 VOL% (42.0-52.0); Hemoglobin 9.7 GM/DL (14.0-18.0); Immature Granulocytes % 0.8 %; Immature Granulocytes Absolute 0.03 #; Lymphocytes # 1.5 10*3/uL (1.4-4.0); Lymphocytes % 37.6 % (21.2-54.2); Mean Corpuscular HGB Conc 29.7 GM/DL (32-36); Mean Corpuscular Volume 81.5 FL (87-102); Mean Platelet Volume 11.1 FL (9.6-12.0); Monocytes % 19.9 % (1.7-12.7); Neutrophils % 38.9 % (38.7-73.9); Platelet Count 333 T/CUMM (130-400); Red Blood Count 4.01 MC/CUMM (3.8-5.5); Red Cell Distribution Width 21.7 % (9.3-17.3); White Blood Count 3.9 T/CUMM (4-12)
[2021-03-27 08:22] LABS: Eosinophils 2 % (0-10); Lymphocytes 38 % (20-55); Platelet Estimate Adequate; Segmented Neutrophils 45 % (50-85); Total Cells Counted 100
[2021-03-27 08:23] LABS: Hypochromasia 1+; Microcytosis 1+
[2021-03-27] MEDS: FERROUS SULFATE 300 MG/5 ML UDCUP PO SCH ×2 (09:21→22:46)
[2021-03-27] MEDS: FOLIC ACID 1 MG TABLET PO SCH (09:21)
[2021-03-27] MEDS: RIFAXIMIN 550 MG TABLET PO SCH ×2 (09:21→22:47)
[2021-03-27] MEDS: OLANZapine 5 MG TABLET PO SCH (09:21)
[2021-03-27] MEDS: LACTULOSE 20 GM/30 ML UDCUP PO SCH ×3 (09:21→22:46)
[2021-03-27] MEDS: levETIRAcetam 500 MG TABLET PO SCH ×2 (09:22→22:47)
[2021-03-27] MEDS: MEMANTINE 10 MG TABLET PO SCH ×2 (09:22→22:47)
[2021-03-27] MEDS: PANTOPRAZOLE 40 MG TABLET PO SCH (09:22)
[2021-03-27] MEDS: MULTIVITAMIN (CENTRUM) TABLET PO SCH (09:22)
[2021-03-27] MEDS: THIAMINE 100 MG TABLET PO SCH (09:22)
[2021-03-27] MEDS: DIVALPROEX 250 MG TABLET PO SCH (09:23)
[2021-03-27] MEDS: BRIMONIDINE/TIMOLOL OPH SOLN 5 ML BOTTLE BOTH EYES SCH ×2 (09:50→22:46)
[2021-03-27] MEDS: DIVALPROEX 500 MG TABLET PO SCH (22:46)
[2021-03-27] MEDS: DONEPEZIL 10 MG TABLET PO SCH (22:46)
[2021-03-27] MEDS: GABAPENTIN 100 MG CAPSULE PO SCH (22:47)
[2021-03-28] MEDS: MEROPENEM 500 MG in SODIUM CHLORIDE 0.9% 100 ML IV SCH ×3 (04:16→15:18)
[2021-03-28 04:54] LABS: Basophils % 0.5 % (0.0-0.8); Eosinophils # 0.1 10*3/uL (0.0-0.87); Eosinophils % 2.2 % (0.00-10.9); Hematocrit 33.3 VOL% (42.0-52.0); Immature Granulocytes % 0.7 %; Immature Granulocytes Absolute 0.03 #; Lymphocytes # 1.4 10*3/uL (1.4-4.0); Lymphocytes % 34.9 % (21.2-54.2); Mean Corpuscular Volume 81.2 FL (87-102); Mean Platelet Volume 10.4 FL (9.6-12.0); Monocytes % 18.8 % (1.7-12.7); Neutrophils % 42.9 % (38.7-73.9); Platelet Count 336 T/CUMM (130-400); Red Cell Distribution Width 22.2 % (9.3-17.3); White Blood Count 4.1 T/CUMM (4-12)
[2021-03-28 05:17] LABS: Calcium 7.7 MG/DL (8.5-10.1); Osmolality,Calculated 274.5 MOS/KG (273-304); Potassium 3.6 MMOL/L (3.5-5.1)
[2021-03-28 05:19] LABS: Eosinophils 2 % (0-10); Lymphocytes 36 % (20-55); Platelet Estimate Normal; Segmented Neutrophils 44 % (50-85); Total Cells Counted 100
[2021-03-28] MEDS: levETIRAcetam 500 MG TABLET PO SCH (08:32)
[2021-03-28] MEDS: THIAMINE 100 MG TABLET PO SCH (08:32)
[2021-03-28] MEDS: RIFAXIMIN 550 MG TABLET PO SCH (08:32)
[2021-03-28] MEDS: MULTIVITAMIN (CENTRUM) TABLET PO SCH (08:32)
[2021-03-28] MEDS: OLANZapine 5 MG TABLET PO SCH (08:32)
[2021-03-28] MEDS: LACTULOSE 20 GM/30 ML UDCUP PO SCH ×2 (08:38→15:18)
[2021-03-28] MEDS: MEMANTINE 10 MG TABLET PO SCH (08:39)
[2021-03-28] MEDS: FERROUS SULFATE 300 MG/5 ML UDCUP PO SCH (08:39)
[2021-03-28] MEDS: DIVALPROEX 250 MG TABLET PO SCH (08:39)
[2021-03-28] MEDS: FOLIC ACID 1 MG TABLET PO SCH (08:39)
[2021-03-28] MEDS: PANTOPRAZOLE 40 MG TABLET PO SCH (08:39)
[2021-03-28] MEDS: BRIMONIDINE/TIMOLOL OPH SOLN 5 ML BOTTLE BOTH EYES SCH (09:27)
[2021-03-28 11:49] VITALS: BP 113/68
== END 2021-03-28 16:00 | DRG 177 ==
LOC: N.ED 10:16 → N.3E 18:08
PROVIDERS: ADMIT Internal Medicine; ATTEND Internal Medicine
PROC: EGDWPEG (ICD-10-PCS; 2021-03-26 11:05)